=== PATIENT | female | born 1975 ===

== ENCOUNTER 2016-10-18 14:13 | Emergency (ER) | payer MEDICAID, OTHER ==
[2016-10-18 14:20] VITALS: BP 134/78
--- NOTE | 2016-10-18 14:46 | EDM.PDOC ---
ED HPI GI/ABDOMINAL - General Chief Complaint: Abdominal Pain Stated Complaint: HERNIA, FELT IT POP, PAIN TODAY Time Seen by Provider: 10/18/16 14:42 Source of Information: Reports: Patient History Limitations: Reports: No limitations - History of Present Illness INITIAL COMMENTS - FREE TEXT/NARRATIVE: Pt states that yesterday she heard a "pop" in her abdomen. c/o pain to her LLQ. Symptom Onset Date: 10/17/16 Timing/Duration: Reports: Constant Location: LLQ Quality: Reports: ache Severity: moderate Improves with: Reports: lying down Worsens with: Reports: palpation Associated Symptoms (-Female): Reports: denies other symptoms - Related Data Allergies/ADRs: Allergies Allergy/AdvReac Type Severity Reaction Status Date / Time amoxicillin Allergy Cannot Verified 10/18/16 14:20 Remember Penicillins Allergy Cannot Verified 10/18/16 14:20 Remember Home Meds: Home Meds Albuterol Sulfate [Proair Hfa] 2 puff INH Q6H PRN 10/18/16 [History] Past Medical History HEENT History: Reports: Impaired vision, Other (see below) (concussion/closed head injury. Migraines) Endocrine/Metabolic History: Reports: Obesity/BMI 30+ Hematologic History: Reports: Anemia - Infectious Disease History Infectious Disease History: Reports: Chicken pox - Past Surgical History GI Surgical History: Reports: Hernia repair/other Female Surgical History: Reports: section Social & Family History - Family History Family Medical History: Noncontributory - Tobacco Use Smoking Status *Q: Heavy Tobacco Smoker Years of Tobacco use: 20 Packs/Tins Daily: 5 - Caffeine Use Caffeine Use: Reports: Soda - Recreational Drug Use Recreational Drug Use: No - Living Situation & Occupation Occupation: employed ED ROS GENERAL - Review of Systems Review Of Systems: See Below GI/Abdominal: Reports: Abdominal pain, Nausea ED EXAM, GI/ABD - Physical Exam Exam: See Below Exam Limited By: No limitations General Appearance: alert, WD/WN, no apparent distress Respiratory/Chest: no respiratory distress, lungs clear, normal breath sounds, no accessory muscle use, chest non-tender Cardiovascular: normal peripheral pulses, regular rate, rhythm, no edema, no gallop, no JVD, no murmur, no rub GI/Abdominal: normal bowel sounds, soft, no organomegaly, no distention, no abnormal bruit, no mass, tenderness, hernia Neurological: alert, oriented Course - Vital Signs Last Recorded V/S: Last Vital Signs Temp 96.1 F 10/18/16 14:19 Pulse 79 10/18/16 14:19 Resp 16 10/18/16 14:19 BP 134/78 10/18/16 14:19 Pulse Ox 96 10/18/16 14:19 - Orders/Labs/Meds Labs: Laboratory Tests 10/18/16 10/18/16 Range/Units 14:54 14:54 WBC 8.7 (5.0-10.0) 10^3/uL RBC 4.65 (4.2-5.4) 10^6/uL Hgb 12.5 (12.0-16.0) g/dL Hct 37.8 (37.0-47.0) % MCV 81.3 (80-100) fL MCH 26.9 L (27.0-34.0) pg MCHC 33.1 (33.0-35.0) g/dL Plt Count 305 (150-450) 10^3/uL Neut % (Auto) 51.6 (42.2-75.2) % Lymph % (Auto) 37.2 (20.5-50.1) % [place] % (Auto) 7.1 (2-8) % Eos % (Auto) 4.0 H (1.0-3.0) % Baso % (Auto) 0.1 (0.0-1.0) % Sodium 136 (135-145) mmol/L Potassium 3.2 L (3.6-5.0) mmol/L Chloride 100 L (101-111) mmol/L Carbon Dioxide 31.0 (21.0-31.0) mmol/L Anion Gap 8.2 BUN 10 (7-18) mg/dL Creatinine 0.5 L (0.6-1.3) mg/dL Est Cr Clr Drug Dosing 141.41 mL/min Estimated GFR (MDRD) > 60 Glucose 283 H (74-105) mg/dL Calcium 8.4 (8.4-10.2) mg/dl Meds: Medications Discontinued Medications Generic Name Dose Route Start Last Admin Trade Name Freq PRN Reason Stop Dose Admin Hydrocodone Bitart/Acetaminophen 1 tab 10/18/16 16:23 Gap 325-5 Mg PO 10/18/16 16:24 ONETIME ONE Iopamidol 100 ml 10/18/16 14:54 10/18/16 15:40 Isovue-300 (61%) IVPUSH 10/18/16 14:55 100 ml ONETIME ONE Administration - Radiology Interpretation Free Text/Narrative:: Ventral hernia noted - Re-Assessments/Exams Free Text/Narrative Re-Assessment/Exam: 10/18/16 16:37 Pt infomred to follow up with her surgeon as no surgeon available today for consultation. Pt states that she will follow up with a surgeon in [place] Departure - Departure Time of Disposition: 16:38 Disposition: Home, Self-Care 01 Clinical Impression: Hernia Instructions: Abdominal Pain, Adult, [id number], Hernia, Adult Forms: ED Department Discharge Additional Instructions: Make sure to call on thursday to get in with a surgeon for repair of your hernia.
[2016-10-18] MEDS ORDERED: Iopamidol 612 MG/ML 100 ML Bottle IVPUSH ONE (14:54)
[2016-10-18 15:20] LABS: CHLORIDE,CL 100 mmol/L (101-111); SODIUM,NA 136 mmol/L (135-145)
[2016-10-18] MEDS ORDERED: Acetaminophen/HYDROcodone 325-5 MG Tab PO ONE (16:23)
[2016-10-18] MEDS ORDERED: Acetaminophen/HYDROcodone 325-10 MG Tab PO ONE (16:49)
== END 2016-10-18 16:55 | disposition home or self-care (01) ==
LOC: DL.ED 14:13
DX: K43.9 Ventral hernia without obstruction or gangrene (principal); E66.9 Obesity, unspecified; F17.210 Nicotine dependence, cigarettes, uncomplicated; Z86.2 Personal history of diseases of the blood and blood-forming organs and certain disorders involving the immune mechanism; Z88.0 Allergy status to penicillin; Z88.1 Allergy status to other antibiotic agents
CPT/HCPCS: 36415; 74177; 80048; 85025; 99284; A9270; Q9967